=== PATIENT | male | born 1935 | race Two or more races ===

== ENCOUNTER 2021-02-20 00:57 | Emergency (ER) | payer MEDICARE, OTHER ==
[~2021-02-20] VITALS: Ht 167.6 cm; Wt 54.4 kg
[2021-02-20 01:02] VITALS: BP 118/72
--- NOTE | 2021-02-20 01:37 | NUR ---
[facility] CALLED FOR TRANSPORT. ETA 45-60 MINUTES.
--- NOTE | 2021-02-20 02:29 | NUR ---
[facility] AT BED SIDE
--- NOTE | 2021-02-20 02:43 | NUR ---
PT WAS PICKED UP BY [facility] VIA GURNEY IN STABLE CONDITION. MEDICALLY STABLE FOR D/C. Patient discharged to home in stable condition. Written and verbal after care instructions given. Patient verbalizes understanding of instruction.
== END 2021-02-20 02:50 | disposition home or self-care (01) ==
LOC: ER 00:59
DX: K94.23 Gastrostomy malfunction (principal); I10 Essential (primary) hypertension; Z86.73 Personal history of transient ischemic attack (TIA), and cerebral infarction without residual deficits

== ENCOUNTER 2021-08-29 03:20 | Emergency (ER) | payer MEDICARE, OTHER ==
[~2021-08-29] VITALS: Ht 160 cm; Wt 59.4 kg
--- NOTE | 2021-08-29 03:41 | NUR ---
PATIENT BIBRA 860 C/O G TUBE PULLED OUT. PATIENT COMING FROM HOME WITH FAMILY MEMBER IN RA. PATIENT IS A/O, RR EVEN AND UNLABORED, NO SOB NOTED, PATIENT CONNECTED TO CARDIAC MONIOTR AND POX.
[2021-08-29] MEDS ORDERED: DIATR MEGLU/DIATRIZOATE SODIUM 30 ML BOTTLE (GASTROGRAPHIN) ONE (03:44)
--- NOTE | 2021-08-29 04:40 | NUR ---
[facility] WILL BE HERE IN 90 MIN TO P/U THE PT
[2021-08-29 06:23] VITALS: BP 135/68
--- NOTE | 2021-08-29 06:23 | NUR ---
REPORT GIVEN TO EMS AT BEDSIDE
== END 2021-08-29 06:24 | disposition home or self-care (01) ==
LOC: ER 03:23
DX: K94.23 Gastrostomy malfunction (principal); I10 Essential (primary) hypertension; Z86.73 Personal history of transient ischemic attack (TIA), and cerebral infarction without residual deficits
CPT/HCPCS: 43762; 74018; 99284; Q9963